=== PATIENT | female | born 1950 | race Two or more races ===

== ENCOUNTER 2019-12-16 05:59 | Day surgery (SDC) | payer MEDICARE, OTHER ==
[2019-12-14 09:07] LABS: BASOPHILS % (AUTO) 0.7 % (0.0-2.0); EOSINOPHILS % (AUTO) 0.4 % (0.0-3.0); HEMATOCRIT 34.7 % (37.0-47.0); LYMPHOCYTES % (AUTO) 21.4 % (20.0-45.0); MEAN CORPUSCULAR VOLUME 89 FL (80-99); MONOCYTES % (AUTO) 6.4 % (1.0-10.0); NEUTROPHILS % (AUTO) 71.2 % (45.0-75.0); PLATELET COUNT 290 K/UL (150-450); RED BLOOD COUNT 3.88 M/UL (4.20-5.40); RED CELL DISTRIBUTION WIDTH 13.3 % (11.6-14.8); WHITE BLOOD COUNT 14.1 K/UL (4.8-10.8)
[2019-12-14 09:12] LABS: ANION GAP 7 mmol/L (5-15); BLOOD UREA NITROGEN 42 mg/dL (7-18); CALCIUM 9.3 MG/DL (8.5-10.1); CARBON DIOXIDE 28 MMOL/L (21-32); CHLORIDE 107 MMOL/L (98-107); POTASSIUM 4.5 MMOL/L (3.5-5.1); SODIUM 142 MMOL/L (136-145)
[2019-12-14 09:32] LABS: INR 0.9 (0.9-1.1)
--- NOTE | 2019-12-14 10:05 | Pre-Procedure Note/Attestation ---
Pre-Procedure Note/Attestation Complete Prior to Procedure Planned Procedure: right Procedure Narrative: Cataract Extraction With IOL Implant Right Eye Indications for Procedure Pre-Operative Diagnosis: Nuclear sclerotic cataract right eye Attestation I attest that I discussed the nature of the procedure; its benefits; risks and complications; and alternatives (and the risks and benefits of such alternatives ), prior to the procedure, with the patient (or the patient's legal merchandiser retail representative). I attest that, if there was a reasonable possibility of needing a blood transfusion, the patient (or the patient's legal merchandiser retail representative) was given the [facility] standardized written summary, pursuant to the Stephon [place] Blood Safety Act ([place] Health and Safety Code # 1645, as amended). I attest that I re-evaluated the patient just prior to the surgery and that there has been no change in the patient's H&P, except as documented below: Shade Recio MD December 14, 2019 10:05
--- NOTE | 2019-12-14 10:21 | Opthalmology H&P ---
Ophthalmology H&P H&P Chief Complaint: decreased vision in right eye HPI Vision Affects Ability to: read, manage personal affairs HPI Narrative Blurry vision Exam Visual Acuity: OD 20/80 OS 20/30 Tension: OD 17 OS 17 Eye Exam: normal OU: external exam, palpebral fissure-width, marginal reflex distance, levator function, corneas, anterior chambers, fundus exam; findings: lens - NS Cataract OD, Pseudophakia OS Assessment/Plan Treatment Plan: cataract extraction w/ lens implant Goals of Treatment: improvement of vision, enhance quality of life Attestation Attestation The risks and benefits of the surgery as well as alternative procedures were explained to the patient in detail. Shade Recio MD December 14, 2019 10:21
--- NOTE | 2019-12-14 13:53 | Diagnostic Imaging Report ---
Indication: Cough Technique: 2 views of the chest Comparison: None Findings: Calcified granuloma is seen in the left lower lung. The heart size is normal. The aorta is tortuous and calcified. There are degenerative changes of the thoracic spine Surgical clips are seen in the right upper quadrant Impression: No acute process Evidence of old granulomatous disease
[2019-12-16] VITALS (8 sets, daily range): BP systolic 140–188; BP diastolic 57–80
[~2019-12-16] VITALS: Ht 165.1 cm; Wt 77.6 kg
[~2019-12-16 05:59] MED LIST: AMLODIPINE BESYL5 MG ORAL; Ciprofloxacin Opth Soln 2.5ml RIGHT EYE ONE; DICYCLOMINE HCL10 MG ORAL; HYDROCHLOROTHIA50 MG ORAL; LIPITOR40 MG ORAL; LOSARTAN POTASS50 MG ORAL; NOVOLOG100 UNITS1 SUBQ; OMEPRAZOLE40 M1 ORAL; OYSCO-500500 M1 PO; SERTRALINE HCL50 MG ORAL; TRAMADOL HCL50 MG ORAL; TRESIBA FL200 UNIT/1 SQ
[2019-12-16] MEDS ORDERED: Proparacaine 0.5% Opth Soln 15ml RIGHT EYE ONE (07:00)
[2019-12-16] MEDS ORDERED: Akten 3.5% 1ml Btl RIGHT EYE ONE (07:00)
[2019-12-16] MEDS ORDERED: Cyclopentolate 1% Opth Sol 2ml RIGHT EYE SCH (07:00)
[2019-12-16] MEDS ORDERED: Tropicamide 1% Opth 15ml Soln RIGHT EYE SCH (07:00)
[2019-12-16] MEDS ORDERED: Tetracaine 0.5% Opth 4ml Soln RIGHT EYE ONE (07:00)
[2019-12-16] MEDS ORDERED: Phenylephrine 10% Opth Soln 5ml RIGHT EYE SCH (07:00)
[2019-12-16] MEDS ORDERED: Diclofenac Sod 0.1% Op Soln RIGHT EYE SCH (07:00)
[2019-12-16] MEDS ORDERED: LR 1000ml 1,000 ML IVLG SCH (07:06)
--- NOTE | 2019-12-16 07:06 | Anethesia Preoperative Eval ---
Anesthesia Pre-op PMH/ROS General Date of Evaluation: December 16, 2019 Anesthesiologist: Daniel ASA Score: ASA 2 Mallampati Score Class I : Soft palate, uvula, fauces, pillars visible Class II: Soft palate, uvula, fauces visible Class III: Soft palate, base of uvula visible Class IV: Only hard plate visible Mallampati Classification: Class III Surgeon: Almita Diagnosis: Right cataract Surgical Procedure: Right cataract extraction with IOL Anesthesia History: none Family History: no anesthesia problems Allergies: Coded Allergies: PENICILLINS (Verified Allergy, Unknown, 12/14/19) Medications: see eMAR Patient NPO?: Yes NPO Date: December 16, 2019 NPO Time: 00:00 Past Medical History Cardiovascular: Reports: HTN, other - HLD; Denies: CAD, TX, valve dz, arrhythmia Pulmonary: Denies: asthma, COPD, CORNELL, other Gastrointestinal/Genitourinary: Reports: GERD; Denies: CRI, ESRD, other Neurologic/Psychiatric: Reports: depression/anxiety; Denies: dementia, CVA, TIA, other Endocrine: Reports: DM; Denies: hypothyroidism, steroids, other HEENT: Denies: cataract (L), cataract (R), glaucoma, WIYOT (L), WIYOT (R), other Hematology/Immune: Denies: anemia, DVT, bleeding disorder, other Musculoskeletal/Integumentary: Reports: OA; Denies: RA, DJD, DDD, edema, other PSxH Narrative: jaret, hysterectomy, left eye sx, spine sx Anesthesia Pre-op Phys. Exam Physician Exam Last Vital Signs Date Time Temp Pulse Resp B/P (MAP) Pulse Ox O2 Delivery O2 Flow Rate FiO2 12/16/19 06:45 Room Air 12/16/19 06:41 98.7 74 18 153/73 99 Constitutional: NAD Cardiovascular: RRR Respiratory: CTA Airway Exam Mallampati Score: Class III MO: limited ROM: limited Anesthesia Pre-op A/P Labs see chart Studies Pre-op Studies: EKG Risk Assessment & Plan Assessment: ASA II Plan: MAC Status Change Before Surgery: No Pre-Antibiotics Drug: N/A Torrie Sanchez MD December 16, 2019 07:06
[2019-12-16] MEDS ORDERED: LORazepam Inj 2mg/ml 1ml IV PRN (07:15)
[2019-12-16] MEDS ORDERED: DiphenhydrAMINE 50mg/ml Inj IVP PRN (07:15)
[2019-12-16] MEDS ORDERED: BSS 500ml btl ONE (07:17)
[2019-12-16] MEDS ORDERED: BSS 15ml BTL ONE (07:17)
[2019-12-16] MEDS ORDERED: Sodium Hyaluronate 10 mg/ml 0.85ml ONE ×2 (07:17→09:49)
[2019-12-16] MEDS ORDERED: Povidone-Iodine 5% opth solution ONE (07:17)
[2019-12-16] MEDS ORDERED: Lidocaine 1% MPF 10mg/ml 5ml ONE (08:46)
[2019-12-16] MEDS ORDERED: fentaNYL 100 mcg/2 mL IV ONE (08:47)
[2019-12-16] MEDS ORDERED: Midazolam 2mg/2ml Inj ONE (08:47)
[2019-12-16] MEDS ORDERED: NS Irrig 1000ml ONE (09:00)
[2019-12-16] MEDS ORDERED: Sterile Water Irrig 1000ml IRRIG ONE (09:00)
[2019-12-16] MEDS ORDERED: LR 1000ml ONE (09:00)
[2019-12-16] MEDS ORDERED: Tobramycin Op Soln 0.3% 5ml RIGHT EYE SCH (09:30)
--- NOTE | 2019-12-16 09:40 | 48 Hour Post Anesthesia Eval ---
Post Anesthesia Evaluation Procedure: right cataract extraction with IOL Date of Evaluation: December 16, 2019 Airway: patent Nausea: No Vomiting: No Pain Intensity: 0 Hydration Status: adequate Cardiopulmonary Status: at baseline Mental Status/LOC: patient returned to baseline Post-Anesthesia Complications: 0 Follow-up care needed: ready to discharge Torrie Sanchez MD December 16, 2019 09:40
--- NOTE | 2019-12-16 09:40 | Immediate Post-Op Evaluation ---
Immediate Post-Op Evalulation Immediate Post-Op Evalulation Procedure: right cataract extraction with IOL Date of Evaluation: December 16, 2019 Time of Evaluation: 09:41 IV Fluids: 300 Blood Products: 0 Estimated Blood Loss: 0 Urinary Output: 0 Blood Pressure Systolic: 181 Blood Pressure Diastolic: 78 Pulse Rate: 72 Respiratory Rate: 16 O2 Sat by Pulse Oximetry: 100 Temperature (Fahrenheit): 98.2 Pain Score (1-10): 0 Nausea: No Vomiting: No Complications 0 Patient Status: awake, reacts, patent, none Hydration Status: adequate Drug: N/A Torrie Sanchez MD December 16, 2019 09:40
--- NOTE | 2019-12-16 13:36 | Brief Operative Note ---
Immediate Post Operative Note Operative Note Chief Complaint: Blurry vision Pre-op Diagnosis: Nuclear sclerotic cataract right eye Procedure: Cataract extraction with IOL implant right eye Post-op Diagnosis: Pseudophakia OD Findings: consistent w/pre-op dx studies Surgeon: Shade Recio MD Anesthesiologist: Torrie Sanchez MD Anesthesia: MAC Specimen: none Complications: none Condition: stable Fluids: LR Estimated Blood Loss: none Drains: none Implant(s) used?: Yes - IOL-OD Shade Recio MD December 16, 2019 13:36
--- NOTE | 2019-12-16 13:38 | Operative Note - PDOC ---
Operative Note Operative Note Date of Operation/Procedure: December 16, 2019 Chief Complaint: Blurry vision Pre-op Diagnosis: Nuclear sclerotic cataract right eye Procedure: Cataract extraction with IOL implant right eye Post-op Diagnosis: Pseudophakia OD Operative Findings: consistent w/pre-op dx studies Surgeon: Shade Recio MD Anesthesiologist: Torrie Sanchez MD Anesthesia: MAC Specimen: none Complications: none Condition: stable Fluids: LR Estimated Blood Loss: none Drains: none Implant(s) used?: Yes - IOL-OD Indications for Procedure Nuclear sclerotic cataract right eye Description of Procedure This patient has been complaining visually significant cataract in the right eye with the best corrected visual acuity of 20/80 under moderate glare conditions worse. The patient complains of difficulties with glare in performing activities of daily living and wants to manage personal affairs with comfort and accuracy and see well enough to move with safety at home and outdoors. The risks, benefits and alternatives of the procedure were discussed with the patient in the office prior to scheduling surgery. All questions from the patient were answered after the surgical procedure was explained in detail. The risks of the procedure as explained to the patient include, but are not limited to, pain, infection, bleeding, loss of vision, retinal detachment, need for further surgery, loss of lens nucleus, double vision, etc. Alternative procedures were discussed which include, to do nothing or seek a second opinion. Informed consent for this procedure was obtained from the patient. The patient was referred to a primary care physician for a cardiopulmonary clearance prior to surgery, after proper evaluation was done patient was properly scheduled for outpatient surgery. The patient was brought to the operating room where the anesthesiologist established I.V. lines and cardiac monitoring leads. Mild intravenous sedation was administered. The patient was then prepared with a 5% solution of povidone -iodine to the conjunctival fornix and lashes, and a 5% solution of povidone- iodine to the lids and periorbital skin. The patient was then draped in the usual sterile fashion. A lid speculum was then placed in the operative eye. A keratome blade was then used to create a biplanar incision into the anterior chamber. Viscoelastics was then instilled into the anterior chamber. A capsulorrhexis was then fashioned with an utrata forceps. BSS and a cannula were then used to hydrodissect and hydro delineate the lens. Paracentesis incision was made at 3 o'clock with sharp blade. The phacoemulsification unit, after being properly adjusted and tested, was then used to emulsify the nucleus. Residual cortical material was aspirated with the irrigation and aspiration unit. Healon was then instilled into the anterior chamber. The corneal wound was then enlarged to the size of the optic with the mary keratome blade. The intraocular lens was then inspected for right power and size and thought to be satisfactory. Then the lens was gently placed in the capsular bag. Positioning within the capsular bag was confirmed by direct visualization. Optic centration was accomplished with a Sinskey hook. Viscoelastics was removed from the anterior chamber using the irrigation and aspiration unit. The corneal wound was then tested for leaks and none were found. The lid speculum were then removed. Sponge and needle counts were correct. An eye patch and shield were placed over the operative eye. The patient was taken to the recovery room in stable condition. There were no complications. The patient tolerated the procedure well. The patient was then transferred to the ambulatory surgery unit in stable and satisfactory condition , was given detailed written instructions and asked to follow up in the office the next day. Shade Recio MD December 16, 2019 13:38
--- NOTE | 2019-12-16 16:59 | Pre-op HX & Phy Repo 2 SIG ---
DATE OF ADMISSION: 12/16/2019 PRESURGICAL INTERNAL MEDICINE HISTORY AND PHYSICAL DATE OF EVALUATION: December 14, 2019 REASON FOR EVALUATION: I was asked by Dr. Shade Recio to see this 69-year-old female who is going for elective surgery on the right eye on December 16, 2019, at [facility]. The patient was evaluated at outpatient procedure department. PAST MEDICAL HISTORY: The patient's past medical history remarkable for hypertension, insulin-dependent diabetes mellitus, and gastritis. No history of chest pain, palpitation, or heart attack. Denies history of pulmonary problem, asthma, or bronchitis. No history of stroke or seizures. No history of anemia or thyroid problem. No history of renal insufficiency. PAST SURGICAL HISTORY: Cholecystectomy, hysterectomy, spinal disk, and cataract on the left eye. FAMILY HISTORY: Mother from stomach cancer. Father from cancer of the lung. ALLERGIES: To penicillin, itching and rashes. PRESENT MEDICATIONS: Include omeprazole, hydrochlorothiazide, simvastatin, NovoLog 12 units 3 times a day, Tradjenta daily, and tramadol 50 mg 3 times a day. HABITS: Denies history of smoke, alcohol habit, or street drug. PHYSICAL EXAMINATION: GENERAL: Well-developed, well-nourished female, in her 70s. The patient is alert. VITAL SIGNS: Blood pressure 139/77, temperature 96.5, heart rate 75, O2 saturation 96% on room air. SKIN: Clear, warm. LYMPH NODES: Not enlarged. No diaphoresis or rashes. HEENT: Head normocephalic and atraumatic. Ears, clear. Eyes, full description per Dr. Shade Recio. Mouth, clear and moist without dentures upper and lower. NECK: Supple. No jugular venous distention. Carotids artery +2. Trachea midline. CHEST: No deformity or asymmetry. LUNGS: Clear to auscultation and percussion. No rales or rhonchi. HEART: Sinus rhythm. No ectopy. No murmur. No S3 or S4. ABDOMEN: Soft, benign. Liver and spleen not enlarged. EXTREMITIES: No deformity or asymmetry. No edema or calf tenderness. No varicose vein. DIAGNOSTIC DATA: ECG, sinus rhythm, 86 per minute, voltage criteria for left ventricular hypertrophy, cannot rule out infarction old, and wave abnormality in inferior lead. Lab work, fast blood sugar 92 mg/dL. IMPRESSION: 1. Nuclear sclerotic cataract, right eye. 2. Hypertension, controlled. 3. Insulin-dependent diabetes mellitus. 4. 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 5. Hyperlipidemia. PLAN: Cataract extraction of right eye with intraocular lens implant per Dr. Shade Recio. CONCLUSION: The patient is a 69-year-old female with insulin-dependent diabetes mellitus and hypertension, who has EKG changes suggestive of left ventricular hypertrophy and old inferior wall RI. The patient is asymptomatic. The patient is to be NPO on the day of surgery, December 16, 2019. The patient's condition optimized for surgery. Sherrie Carrion M.D. DR: Lynette JOB#: [id number] CC:
== END 2019-12-16 11:00 | disposition home or self-care (01) ==
LOC: SUR 05:59
DX: H25.11 Age-related nuclear cataract, right eye (principal); E11.9 Type 2 diabetes mellitus without complications; E78.5 Hyperlipidemia, unspecified; I25.10 Atherosclerotic heart disease of native coronary artery without angina pectoris; I11.9 Hypertensive heart disease without heart failure; K21.9 Gastro-esophageal reflux disease without esophagitis; M19.90 Unspecified osteoarthritis, unspecified site; F32.9 Major depressive disorder, single episode, unspecified; Z79.4 Long term (current) use of insulin; Z90.49 Acquired absence of other specified parts of digestive tract; Z90.710 Acquired absence of both cervix and uterus; Z88.0 Allergy status to penicillin; Z79.899 Other long term (current) drug therapy; F41.9 Anxiety disorder, unspecified
CPT/HCPCS: 36415; 71046; 80048; 85025; 85610; 85730; 93005; 94003; 94150; J2250